=== PATIENT | female | born 1990 | race Caucasian/White ===

== ENCOUNTER → 2016-09-18 | Outpatient (CLI) | payer BC ==
[~2016-09-18] MED LIST: BCPILLS PO; PRENTAB26 PO; RANITAB33 PO
[2016-09-18 17:00] LABS: BASO % 0.2 %; BASO ABS # 0.03 K/uL (0-0.2); COMPLETE YES; EOS % 0.5 %; HEMATOCRIT 39.4 % (37-47); IG% 0.4 %; LYMPH % 23.1 %; LYMPH ABS # 3.27 K/uL (1.2-3.4); MEAN CELL VOLUME 88.7 fL (80-100); MEAN CORPUSCULAR HEMOGLOBIN 31.1 pg (25-34); MEAN PLATELET VOLUME 10.8 fL (7.4-10.4); MONO % 9.7 %; NEUT % 66.1 %; PLATELET COUNT 315 K/uL (130-400); RED BLOOD COUNT 4.44 M/uL (4.2-5.4); WHITE BLOOD COUNT 14.15 K/uL (4.8-10.8)
== END | disposition home or self-care (01) ==
LOC: C.LAB1850 15:50
PROVIDERS: ATTEND Obstetrics & Gynecology
DX: Z34.01 Encounter for supervision of normal first pregnancy, first trimester (principal)

== ENCOUNTER → 2016-09-18 | Outpatient (CLI) | payer BC | END | disposition home or self-care (01) | LOC: C.PAPS 10:07 | PROVIDERS: ATTEND Obstetrics & Gynecology | DX: Z34.01 Encounter for supervision of normal first pregnancy, first trimester (principal) ==

== ENCOUNTER → 2016-09-18 | Outpatient (CLI) | payer BC ==
[2016-09-18 20:07] LABS: URINE APPEARANCE CLEAR (CLEAR); URINE BILIRUBIN NEG (NEG); URINE COLOR YELLOW; URINE NITRITE NEG (NEG); URINE SPECIFIC GRAVITY 1.001 (1.000-1.030); UROBILINOGEN NEG (NEG)
[2016-09-18 20:08] LABS: MANUAL MICROSCOPIC REQUIRED? NO; REVIEW REQ? NO
[2016-09-22 11:57] LABS: CHLAMYDIA TRACH RNA*** NOT DETECTED (NOT DETECTED); GC (NEIS GONORRHOEAE)RNA** NOT DETECTED (NOT DETECTED)
== END | disposition home or self-care (01) ==
LOC: C.LABSPEC 19:10
PROVIDERS: ATTEND Obstetrics & Gynecology
DX: Z34.01 Encounter for supervision of normal first pregnancy, first trimester (principal)

== ENCOUNTER → 2016-11-10 | Outpatient (CLI) | payer BC ==
[2016-11-10 19:45] LABS: GTGD 50 Grams
== END | disposition home or self-care (01) ==
LOC: C.LAB1850 15:25
PROVIDERS: ATTEND Obstetrics & Gynecology
DX: Z34.02 Encounter for supervision of normal first pregnancy, second trimester (principal)

== ENCOUNTER → 2017-01-30 | Outpatient (CLI) | payer BC ==
[2017-01-30 16:49] LABS: HEMATOCRIT 35.1 % (37-47)
[2017-01-30 17:10] LABS: GTGD 50 Grams
== END | disposition home or self-care (01) ==
LOC: C.LAB1850 14:36
PROVIDERS: ATTEND Obstetrics & Gynecology
DX: Z34.02 Encounter for supervision of normal first pregnancy, second trimester (principal)

== ENCOUNTER → 2017-01-30 | Outpatient (CLI) | payer BC ==
[2017-01-30 16:59] LABS: URINE APPEARANCE CLEAR (CLEAR); URINE BILIRUBIN NEG (NEG); URINE COLOR YELLOW; URINE EPITHELIAL CELL AUTO >30 /lpf (0-5); URINE NITRITE NEG (NEG); URINE SPECIFIC GRAVITY 1.013 (1.000-1.030); UROBILINOGEN NEG (NEG)
[2017-01-30 17:06] LABS: MANUAL MICROSCOPIC REQUIRED? NO; REVIEW REQ? NO
== END | disposition home or self-care (01) ==
LOC: C.LABSPEC 16:06
PROVIDERS: ATTEND Obstetrics & Gynecology
DX: Z34.02 Encounter for supervision of normal first pregnancy, second trimester (principal)

== ENCOUNTER 2017-03-21 17:14 | Outpatient (CLI) | payer BC ==
[~2017-03-21] VITALS: Ht 160 cm; Wt 113.4 kg
[~2017-03-21 17:14] MED LIST changes: -PRENTAB26 PO; -RANITAB33 PO
[2017-03-21] MEDS ORDERED: PROMETHAZINE HCL INJ 25 MG in SODIUM CHLORIDE 0.9% 50ML 50 ML IV PRN (17:45)
[2017-03-21] MEDS ORDERED: ONDANSETRON INJ 2 MG/ML 2 ML VIAL IV PRN (17:45)
[2017-03-21] MEDS: LACTATED RINGER'S 1000ML 1,000 ML IV SCH ×2 (18:54→19:07)
[2017-03-21] MEDS ORDERED: PRENTAB26 PO (19:03)
[2017-03-21 19:04] VITALS: Ht 160 cm; Wt 113.4 kg
[2017-03-21] MEDS ORDERED: D5W AND LACTATED RINGERS 1,000 ML IV SCH ×2 (20:01→20:15)
[2017-03-21] MEDS ORDERED: NURSING VERBAL MED ORDER ONE (20:15)
[2017-03-21] MEDS ORDERED: PHENERGAN 25MG HOMEPACK PO ONE (20:30)
== END 2017-03-21 21:55 | disposition home or self-care (01) ==
LOC: C.OPB 17:14 → C.LD 17:15 → C.OPB 21:55
PROVIDERS: ATTEND Obstetrics & Gynecology
DX: O21.2 Late vomiting of pregnancy (principal); R11.10 Vomiting, unspecified; R19.7 Diarrhea, unspecified; Z3A.35 35 weeks gestation of pregnancy

== ENCOUNTER → 2017-03-27 | Outpatient (CLI) | payer BC ==
[~2017-03-27] MED LIST changes: -BCPILLS PO; +PRENTAB26 PO; +RANITAB33 PO
== END | disposition home or self-care (01) ==
LOC: C.LABSPEC 16:47
PROVIDERS: ATTEND Obstetrics & Gynecology
DX: Z34.03 Encounter for supervision of normal first pregnancy, third trimester (principal)

== ENCOUNTER 2017-04-26 04:10 | Inpatient (IN) | payer BC ==
[~2017-04-26] VITALS: Ht 160 cm; Wt 114.8 kg
[~2017-04-26 04:10] MED LIST changes: -RANITAB33 PO
[2017-04-26 04:41] VITALS: Ht 160 cm; Wt 114.8 kg
[2017-04-26] MEDS ORDERED: RANITAB33 PO (04:41)
[2017-04-26] MEDS ORDERED: LACTATED RINGER'S 1000ML 1,000 ML IV PRN (08:29)
[2017-04-26 08:56] LABS: HEMATOCRIT 34.6 % (37-47); MEAN CELL VOLUME 82.2 fL (80-100); MEAN CORPUSCULAR HEMOGLOBIN 25.2 pg (25-34); MEAN CORPUSCULAR HGB CONC 30.6 g/dl (32-36); MEAN PLATELET VOLUME 10.4 fL (7.4-10.4); PLATELET COUNT 405 K/uL (130-400); RED BLOOD COUNT 4.21 M/uL (4.2-5.4); WHITE BLOOD COUNT 19.15 K/uL (4.8-10.8)
[2017-04-26] MEDS: LACTATED RINGER'S 1000ML 1,000 ML IV SCH ×3 (08:57→14:31)
[2017-04-26] MEDS ORDERED: PENICILLIN G POTASSIUM IV 6 MU in DEXTROSE 5% 250ML 250 ML IV ONE (09:00)
[2017-04-26] MEDS ORDERED: EpHEDrine SULFATE INJ 50 MG/ML AMP ONE (13:28)
[2017-04-26] MEDS ORDERED: BUPIVACAINE 0.25% 30 ML VIAL ONE (13:28)
[2017-04-26] MEDS ORDERED: FENTANYL 2MCG/ML ROPIV 1.25MG/ML 100ML BAG EPI ONE (13:28)
[2017-04-26] MEDS ORDERED: FENTANYL CITRATE INJ 50 MCG/1 ML 2 ML VIAL ONE (13:29)
[2017-04-26] MEDS: PENICILLIN G POTASSIUM IV 3 MU in DEXTROSE 5% 100ML 100 ML IV PRN ×2 (13:33→18:59)
[2017-04-26] MEDS ORDERED: LACTATED RINGER'S 1000ML 500 ML IV PRN ×2 (13:57→15:01)
[2017-04-26] MEDS ORDERED: OXYTOCIN 30 UNITS/500ML NSS IV PRN ×2 (14:00→23:15)
[2017-04-26] MEDS ORDERED: NALOXONE HCL INJ 1 MG in SODIUM CHLORIDE 0.9% 1000ML 1,000 ML IV PRN (15:01)
[2017-04-26] MEDS ORDERED: ONDANSETRON INJ 2 MG/ML 2 ML VIAL IV PRN (15:15)
[2017-04-26] MEDS ORDERED: PROMETHAZINE HCL INJ 25 MG in SODIUM CHLORIDE 0.9% 50ML 50 ML IV PRN (15:15)
[2017-04-26] MEDS ORDERED: EpHEDrine SULFATE INJ 50 MG/ML AMP IV PRN (15:15)
[2017-04-26] MEDS ORDERED: NALBUPHINE HCL INJ 10 MG/ML AMP IV PRN (15:15)
[2017-04-26] MEDS ORDERED: FENTANYL 2MCG/ML ROPIV 1.25MG/ML 100ML BAG EPI PRN (15:15)
[2017-04-26] MEDS ORDERED: DiphenhydrAMINE HCL 50 MG/ML VIAL IV PRN (15:15)
[2017-04-26] MEDS ORDERED: NALOXONE HCL INJ 0.4 MG/1 ML VIAL/CARP IV PRN (15:15)
[2017-04-26] MEDS ORDERED: NURSING VERBAL MED ORDER ONE (17:30)
[2017-04-26] MEDS ORDERED: CALCIUM CARBONATE 500 MG CHEWABLE ONE (17:43)
[2017-04-26] MEDS ORDERED: CALCIUM CARBONATE 500 MG CHEWABLE PO PRN (18:00)
[2017-04-26] MEDS ORDERED: IBUPROFEN 600 MG TAB PO PRN (23:15)
[2017-04-26] MEDS ORDERED: BENZOCAINE 20% AER SPR 82.5 GM CAN EXT PRN (23:15)
[2017-04-26] MEDS ORDERED: LANOLIN OINT EXT PRN ×2 (23:15)
[2017-04-26] MEDS ORDERED: ACETAMINOPHEN/CODEINE 300/30MG TAB PO PRN ×2 (23:15)
[2017-04-26] MEDS ORDERED: SUPERCREAM 0.870 % 15GM JAR EXT PRN (23:15)
[2017-04-26] MEDS ORDERED: ACETAMINOPHEN 325 MG TAB PO PRN (23:15)
--- NOTE | 2017-04-27 00:15 | DELIVERY SUMMARY ---
DATE OF OPERATION: 04/26/2017 The patient is a 26-year-old 1, para 0 white female, EDC of 04/24/2017; who presented with spontaneous onset of contractions at approximately 0300 hours. She progressed to 5 cm dilated but then progressed minimally after that. She received epidural analgesia and membranes were ruptured for thin meconium stained fluid. She received Pitocin augmentation and pushed effectively over intact perineum for delivery of a viable female infant. The posterior arm was presenting, there was a mild shoulder dystocia which was relieved with hyperflexion of the hips and release of the posterior arm. Mouth and nasopharynx were suctioned on the perineum and the was placed on the mother's abdomen for further drying and stimulation. There was spontaneous crying and the was moving all 4 limbs. The placenta was expressed intact with a 3-vessel cord. A first degree vaginal and perineal laceration was repaired with 3-0 chromic in the usual fashion. Estimated blood loss was 250 cc. She did require 1% lidocaine to complete the repair of the perineal portion of the tear. Mother and infant are doing well after delivery. The was taken to the nursery for further evaluation because of grunting. I attest to the content of the Intraoperative Record and any orders documented therein. Any exception s are noted below.
--- NOTE | 2017-04-27 01:50 | Anesthesia Procedure Note ---
Anesthesia Epidural Removal Nt Date & Time Apr 27, 2017 at 01:49 Vital Signs Pain Intensity: 0.0 Notes Mental Status: alert / awake / arousable, participated in evaluation Nausea / Vomiting: adequately controlled Pain: adequately controlled Airway Patency, RR, SpO2: stable & adequate BP & HR: stable & adequate Hydration State: stable & adequate Neuraxial Anesthesia: was administered, sensory block is resolving Anesthetic Complications: no major complications apparent, pt satisfied with anesthetic care Epidural: removed without complications, with tip intact
[2017-04-27 02:25] VITALS: BP 129/73; PULSE 77; TEMP 37.1
[2017-04-27 04:40] VITALS: BP 126/73; PULSE 69; TEMP 37
--- NOTE | 2017-04-27 06:58 | Progress Note ---
Subjective Apr 27, 2017. Subjective conversation w/ patient, physical exam, chart review, lab review Ambulation: ambulating normally Voiding: no voiding problems Passing Gas: Yes Diet Tolerance: Regular Diet Lochia: Moderate Feeding Type: Breast Feeding Pain: controlled Review of Systems Respiratory: No shortness of breath Cardiac: No chest pain Abdomen: No nausea, No vomiting Female : No dysuria Objective Vital Signs Date Time Temp Pulse Resp B/P (MAP) Pulse Ox O2 Delivery O2 Flow Rate FiO2 04/27/17 04:40 37.0 69 18 126/73 (90) Room Air 04/27/17 02:25 37.1 77 18 129/73 (91) Room Air 04/27/17 02:25 Room Air Physical Exam General Appearance: WELL-APPEARING, WD/WN, NO APPARENT DISTRESS Respiratory/Chest: lungs clear, normal breath sounds, no respiratory distress Cardiovascular: regular rate, rhythm, no gallop Abdomen: normal bowel sounds, soft Fundus: Firm, Non-Tender, Relation to Umbilicus (at level of U) Extremities: no calf tenderness Laboratory Results Last 24 Hours Test 04/26/17 08:42 04/27/17 04:44 White Blood Count 19.15 K/uL Red Blood Count 4.21 M/uL Hemoglobin 10.6 g/dL Hematocrit 34.6 % Mean Corpuscular Volume 82.2 fL Mean Corpuscular Hemoglobin 25.2 pg Mean Corpuscular Hemoglobin Concent 30.6 g/dl RDW Standard Deviation 42.8 fL RDW Coefficient of Variation 14.4 % Platelet Count 405 K/uL Mean Platelet Volume 10.4 fL Assessment and Plan Post- Day#: 1 Continue Routine Care: Resident Physician Supervision Note: I interviewed and examined the patient. Discussed with Dr. Dwyer and agree with findings and plan as documented in the note. Any exceptions or clarifications are listed here: [None] Documented By: Milagros Logan - Vital Signs reviewed and WNL. - Hgb pending. (on admission was 10.6.) - Blood Type: O+, GBS + , Rubella Immune. - Pt is doing well clinically. Anxious to see baby who was transferred to [place] for respiratory distress. - Monitor and Control pain with Motrin PRN, Resume regular diet, Monitor Lochia. - Encourage breast feeding. - Per Dr. Herrera, pt clear to leave at 12 hour dee (10:30 am). At this point is medically stable. Pt counselled on discharge instructions. LORRI DWYER PGY1 FM RESIDENT Resident Tracking Resident Involvement: Resident Care Provided Care Provided: OB Delivery
--- NOTE | 2017-04-27 06:59 | Discharge Instructions ---
Discharge Instructions Date of Service Apr 27, 2017. Admission Reason for Admission: Check Labor Discharge Discharge Diagnosis / Problem: DELIVERY VAGINAL Discharge Goals Goal(s): Routine recovery after delivery Medications Continue Dispensed Medications: supercream, dermaplast, tucks, lansinoh Activity Recommendations Activity Limitations: per Instructions/Follow-up section . Instructions / Follow-Up Instructions / Follow-Up ACTIVITY RECOMMENDATIONS: * Gradual return to full activity over the next 2-3 weeks. * No lifting - nothing heavier than baby over the next 2-3 weeks. * Do not engage in vigorous exercise, sexual activity or sports until cleared by your physician. * Do not drive or operate any motorized equipment until cleared by your physician. * You may shower/bathe daily. MEDICATIONS: For discomfort or pain, you may use Acetaminophen (Tylenol), Ibuprofen (Advil), or Naproxen (Aleve) following the package directions. For constipation you may use Colace following the package directions. BREAST CARE: If you are not breast feeding: * Wear a supportive bra 24 hours a day for one to two weeks. * Avoid stimulating your breasts and nipples as much as possible during the first few weeks after delivery. * When taking a shower, have the warm water hit your back, not breasts. * When your breasts feel full, apply ice packs. Usually three to four times a day helps ease the discomfort. * Take a mild pain medication (Tylenol / Motrin) when you are uncomfortable. If breast feeding: * Use breast milk to lubricate nipples. Lansinoh cream may be used for sore nipples. You do not need to remove cream prior to breast feeding. If using a different brand of cream, check the label for directions regarding removal of cream prior to nursing. * Wear a supportive bra. * If having problems with breasts or breast feeding, call a foreign law consultant or your health care provider. EPISIOTOMY CARE: After delivery, if you have an episiotomy (stitches), the following steps will ease discomfort and aid healing. * For the first 24 hours after delivery, place ice packs next to your episiotomy to help reduce swelling. * After the first 24 hour-period, sitz baths, either portable or in the tub, are suggested. A shower with a shower arm sprayed over the episiotomy may be comforting. * Virginie care should be done after each voiding and bowel movement. Squirt warm water from a plastic bottle over the perineum (region of the body between the anus and urinary opening) and pat dry. * Use Dermoplast to ease discomfort. Shake container. [place] directly over the episiotomy. Place a Tucks on a clean sanitary pad next to your episiotomy. SPECIAL CARE INSTRUCTIONS: When you are discharged from the hospital, it is important for you to follow the instructions listed below: * During the first week at home, you should be able to care for yourself and your baby. In addition, the usual light household activities are encouraged. * Limit your activities to the way you feel. Do not try to clean the house or move furniture. Be sensible. * If you actively engage in sports and have done so up until the time of your delivery, you may resume these activities as soon as you feel able. This may take up to one month or even longer. Use good judgment. * Continue to take your vitamins for at least six weeks after the of your baby. * Your diet need not be limited unless you were on a special diet before your delivery. Breast-feeding mothers need around 2500 calories per day and at least 64-80 ounces of fluid per day (8 to 10 glasses). * You should eat foods from the four major food groups. Crash diets or fad diets are to be avoided. Eating lean meats, fresh fruits and vegetables, low-fat dairy products, high fiber foods and a regular exercise program, will help you get back to your pre- weight without putting your health at risk. * Constipation is sometimes a problem after delivery. Take a mild laxative as needed. If breast feeding, Milk of Magnesia is acceptable to use. You may use a suppository or Fleets enema if no episiotomy. * A daily shower or tub bath is suggested. Be sure to thoroughly and gently dry the perineum. * A bloody vaginal discharge will usually continue until around four weeks post . A small amount of bleeding may continue for as long as six weeks. Vaginal discharge changes from the bright red bleeding after delivery to pink then brownish and finally yellowish-pink before becoming white and disappearing. * Bleeding may increase with activity. Your first period may come in 4-8 weeks. If you are breast feeding, your period may be delayed even longer. * Tullos (sex) can begin whenever both you and your partner feel comfortable and do not have any form of genital infection. It is recommended that you wait at least six weeks for internal and external healing to occur. If you have questions, please talk to your health care practitioner. A condom should be used to prevent infection and . * Foreplay, gentle intercourse and lubrication is very important the first several times to prevent pain. A water-based lubricant such as K-Y jelly or Astroglide may be used. * If you have RH negative blood and your baby is RH positive, you will receive RHOGAM by injection prior to discharge. The nurse will give you a card to keep with you that has the date and place that you received RHOGAM after delivery. * During your care, you had a Rubella screen done to check for the presence of rubella antibodies in your blood. If your test was negative, you will receive a Rubella vaccine prior to discharge. This vaccine may cause a fever, soreness at the injection site and flu-like symptoms. If these symptoms persist, notify your health care practitioner. is not advised for one month after a Rubella vaccine. * Verbalizes understanding of car seat law as reviewed with patient nursing. * Car Seat hand-out given and reviewed with patient by nursing. * Shaken baby information reviewed with patient by nursing. Call you doctor if: * Heavy bleeding (saturating several pads an hour) or passing clots the size of your fist. * A fever >101 degrees F (38.3 degrees C) on two occasions four hours apart and /or chills. * Unusual pain in the pelvic or vaginal areas. * "Baby Blues" lasting longer than two weeks. If you have any questions or concerns, call your health care practitioner at . FOLLOW UP VISIT: * Please call the office at to schedule a 6 week examination. It is important you keep this appointment. It is important for you to make arrangements for either yearly or twice yearly check-ups thereafter. Current Hospital Diet Patient's current hospital diet: Regular OB Diet Discharge Diet Recommended Diet: Regular Diet Pending Studies Studies pending at discharge: no Medical Emergencies . Who to Call and When: Medical Emergencies: If at any time you feel your situation is an emergency, please call 911 immediately. . Non-Emergent Contact Non-Emergency issues call your: Primary Care Provider . . "Provider Documentation" section prepared by Mariola Dwyer. . VTE Core Measure Inpt VTE Proph given/why not?: Treatment not indicated
[2017-04-27 07:31] LABS: HEMATOCRIT 30.5 % (37-47)
[2017-04-27 08:00] VITALS: BP 137/80; PULSE 84; TEMP 37; O2SAT 98
[2017-04-27] MEDS ORDERED: DOCUSATE SODIUM 100 MG CAP PO SCH (08:00)
[2017-04-27] MEDS ORDERED: PRENATAL VITAMIN TAB PO SCH (08:00)
[2017-04-27 09:00] VITALS: BP_DIAS 80; PULSE 84; TEMP 37
[2017-04-27] MEDS ORDERED: BISACODYL 5 MG TABEC PO SCH (20:00)
== END 2017-04-27 09:00 | disposition home or self-care (01) | DRG 775 ==
LOC: C.OPB 04:10 → C.LD 04:11 → C.OPB 08:31 → C.LD 08:31 → C.OBG 04-27 03:47
PROVIDERS: ADMIT Obstetrics & Gynecology; ATTEND Obstetrics & Gynecology
PROC: 10E0XZZ Delivery of Products of Conception, External Approach (ICD-10-PCS; principal; 2017-04-26)
PROC: 0HQ9XZZ Repair Perineum Skin, External Approach (ICD-10-PCS; principal; 2017-04-26)
DX: O70.0 First degree perineal laceration during delivery (principal); Z37.0 Single live birth; Z3A.40 40 weeks gestation of pregnancy; Z22.330 Carrier of Group B streptococcus

== ENCOUNTER 2019-12-22 21:56 | Inpatient (IN) ==
[2019-12-22] MEDS ORDERED: OXYTOCIN 30 UNITS/500 ML BAG IV PRN (22:27)
[2019-12-22 22:57] LABS: Hematocrit (blood only) 31.6 % (37-47); Mean Corpuscular Hemoglobin 25.1 pg (25-34); Mean Corpuscular Volume 79.2 fL (80-100); Mean Platelet Volume 10.4 fL (7.4-10.4); Platelet Count 348 K/uL (130-400); RDW Coefficient of Variation 14.7 % (11.5-14.5); RDW Standard Deviation 42.1 fL (36.4-46.3); Red Blood Count 3.99 M/uL (4.2-5.4); White Blood Count 13.88 K/uL (4.8-10.8)
[2019-12-22] MEDS: LACTATED RINGER'S 1,000 ML IV PRN (23:00)
[2019-12-22 23:01] LABS: Mean Corpuscular Hgb Conc 31.6 g/dL (32-36)
[2019-12-22] MEDS ORDERED: ePHEDrine sulfate 50 MG/ML AMP ONE (23:06)
[2019-12-22] MEDS ORDERED: fentaNYL citrate 100 MCG/2 ML VIAL ONE (23:06)
[2019-12-22] MEDS ORDERED: BUPIVACAINE 0.25% 30 ML VIAL ONE (23:06)
--- NOTE | 2019-12-22 23:06 | History & Physical Report ---
Date of Service December 22, 2019 Assessment & Plan (1) Supervision of normal intrauterine in multigravida: Spontaneous labor, admit to L&D. IV fluids, EFM/toco. Labs. Patient would like epidural. Previous 8lb baby at 40+weeks . We are suspecting this baby to also be large, she would like to undergo trial of labor. I think this is reasonable, given her prior vaginal delivery of a large baby. History of Present Illness Chief Complaint: spont labor Primary Care Provider: NO PCP 29yo @ 39 11/14, presents with regular ctx and large gush of clear fluid at 9pm tonight. complicated by: Obesity (BMI 46.4) Baby in >98%ile at 32wk --> rescan @ 36wk. *BMI 35 or >At start of preg, growth US @ 32wks 36 weeks AC 90, efw 85% Anatomy us--bilateral choroid plexus cyst, bilateral dilated renal pelvis panorama low risk male, offered mfm (declined) both resolved on 24 week ultrasound. (look again at 32 week scan) Neither checked at 32 week scan Flu shot given 08/18/2019 Allergies Allergy/AdvReac Type Severity Reaction Status Date / Time No Known Allergies Verified 12/19/19 13:54 Home Medications Home Medications Medication Instructions Recorded Confirmed Type breast pump #1 ea 11/23/19 12/19/19 Rx omeprazole magnesium [Prilosec OTC] 20 mg PO DAILY PRN 12/22/19 12/22/19 History vit no.[id number] 1 tab PO DAILY 12/22/19 12/22/19 History [ Vitamin] Patient History Medical History Dehydration during Encounter for anatomic survey Miscarriage Nausea and vomiting of , antepartum Normal labor Post term over 40 weeks Varicella Surgical History S/P wisdom tooth extraction Family History Family/Other Diabetes Mother Breast cancer Father Colorectal cancer Social History Preferred Language: Danish Communication Ability: Effective Preschool Assistant Director Required: No Beliefs That Will Affect Care: None marital status: marital status details: Rito Taylor (29) [phone] Current Living Situation: Family Current Living Situation Comment: 2 cats- spouse changing litter current occupational status: employed current occupation: Teacher @ [employer] Other Information That Helps Us Care for You: No Feels Safe at Home: Yes Safety Concerns: Feels Safe At This Time Smoking Status: Never smoker Do You Dip or Chew Tobacco: No ; Second Hand Exposure: No ; Hx Alcohol Use: No Hx Substance Use: No Review of Systems All systems reviewed & are unremarkable except as noted in HPI & below Physical Exam Physical Exam: SVE 5/75/-2 per RN Constitutional: WD/WN, vitals as above Respiratory: normal respiratory effort, lungs clear to auscultation no respiratory distress Cardiovascular: Rate/Rhythm: regular rate and regular rhythm Gastrointestinal (Abdomen): Inspection/Auscultation: abdomen normal to inspection Percussion/Palpation: abdomen soft; abdomen nontender Gravid. No s/s chorio or abruption. Skin: no rashes, warm and dry Psychiatric: A+Ox3, euthymic affect Results & Data Vital Signs (Past 12 Hours) Vital Signs Temp 12/22/19 22:10 36.8 C Monitoring External Monitor FHT Cat 1 [place] Q 5 min Coding Level of Care Code None Diagnoses Supervision of normal intrauterine in multigravida Z34.80
[2019-12-22] MEDS ORDERED: fentaNYL 2MCG/ML ROPIV 1.25MG/ML 100 ML BAG EPI ONE (23:07)
--- NOTE | 2019-12-22 23:40 | Anesthesiology Consultation ---
Date of Service December 22, 2019 Assessment & Plan Chart Review Chart Review: Acceptable Risk for Labor Epidural Consults Requested none History Height/Weight Height: 5 ft 3 in Weight: 120.304 kg Allergies Allergy/AdvReac Type Severity Reaction Status Date / Time No Known Allergies Verified 12/19/19 13:54 Medications Home Medications Medication Instructions Recorded Confirmed Last Taken breast pump #1 ea 11/23/19 12/19/19 Unknown omeprazole magnesium [Prilosec OTC] 20 mg PO DAILY PRN 12/22/19 12/22/19 12/21/19 11:30 vit no.[id number] 1 tab PO DAILY 12/22/19 12/22/19 12/21/19 11:30 [ Vitamin] Active Medications Generic Name Dose Route Start Last Admin Trade Name Freq PRN Reason Stop Dose Admin Lactated Ringer's 1,000 mls @ 125 mls/hr 12/22/19 22:27 12/22/19 23:35 Lr IV 12/24/19 22:26 125 mls/hr .Q8H PRN Infusion L&D Protocol Protocol Past Medical History Medical History Dehydration during Encounter for anatomic survey Miscarriage Nausea and vomiting of , antepartum Normal labor Post term over 40 weeks Varicella Past Family History Family History Family/Other Diabetes Mother Breast cancer Father Colorectal cancer Past Surgical History Surgical History S/P wisdom tooth extraction Social History Smoking Status: Never smoker Do You Dip or Chew Tobacco: No Hx Alcohol Use: No Hx Substance Use: No substance use type: does not use Physical Exam Vital Signs Last Vital Signs Temp 36.8 C 12/22/19 22:10 Pulse 103 H 12/22/19 23:37 BP 112/54 L 12/22/19 23:37 Pulse Ox 99 12/22/19 23:35 Testing Laboratory Results 12/22/19 22:46
[2019-12-22] MEDS ORDERED: NALOXONE HCL 1 MG in SODIUM CHLORIDE 0.9% 1000ML 1,000 ML IV PRN (23:41)
[2019-12-22] MEDS ORDERED: NALBUPHINE HCL INJ 10 MG/ML AMP IV PRN (23:41)
[2019-12-22] MEDS ORDERED: fentaNYL 2MCG/ML ROPIV 1.25MG/ML 100 ML BAG EPI PRN (23:41)
[2019-12-22] MEDS ORDERED: DiphenhydrAMINE HCL 50 MG/ML VIAL IV PRN (23:41)
[2019-12-22] MEDS ORDERED: ePHEDrine sulfate 50 MG/ML AMP IV PRN (23:41)
[2019-12-22] MEDS ORDERED: NALOXONE HCL 0.4 MG/1 ML VIAL/CARP IV PRN (23:41)
[2019-12-23] MEDS: LACTATED RINGER'S 1,000 ML IV PRN (00:08)
[2019-12-23] MEDS ORDERED: OXYTOCIN 30 UNITS/500 ML BAG IV PRN ×2 (01:51→04:33)
--- NOTE | 2019-12-23 04:03 | Delivery Summary ---
Vaginal Delivery Summary Date of Service December 23, 2019 Vaginal Delivery Summary Vaginal Delivery Summary: Pre-delivery diagnoses: 29yo @ 38 12/14, spontaneous labor Post-delivery diagnoses: same Procedure: spontaneous vaginal delivery Surgeon: Cathy Dominguez DO Complications: none Findings: Viable male . Apgars: 8/9. Weight pending, please see nursery records Estimated blood loss: 300ml Description of delivery: The patient progressed to complete with epidural anesthesia. She then began to push. She spontaneously vaginally delivered a viable from the cephalic presentation. The head delivered in ROP position. The anterior shoulder delivered, followed by the posterior shoulder, followed by the body. The baby was placed on mother's abdomen and a spontaneous cry was heard. The cord was doubly clamped and cut. A segment was retained for cord gases. Cord blood was obtained. The placenta was delivered spontaneously intact with a 3-vessel cord. The uterus and vagina were swept of clots and debris. IV pitocin was given. The uterus became firm. The cervix, vagina, and perineum were inspected and a superficial 1st degree perineal lacerations was noted. Since it was hemostatic, it did not require repair. Excellent hemostas is was observed. The mother and baby are recovering in stable and good condition in the room. Sponge and instrument counts were correct x 2. DO ESTELA Aponte
[2019-12-23] MEDS ORDERED: OXYCODONE/ACETAMINOPHEN 5mg/325mg TAB PO PRN (04:33)
[2019-12-23] MEDS ORDERED: HYDROCORTISONE ACETATE 25 MG SUPP PR PRN (04:33)
[2019-12-23] MEDS ORDERED: BENZOCAINE 20% AER SPR 82.5 GM CAN EXT PRN (04:33)
[2019-12-23] MEDS ORDERED: SUPERCREAM 0.870% 15 GM JAR EXT PRN (04:33)
[2019-12-23] MEDS ORDERED: bisacodyL 10 MG SUPP PR PRN (04:33)
[2019-12-23] MEDS ORDERED: DIPHTHERIA/TETANUS/PERTUSSIS 0.5 ML SYR/VIAL IM ONE (04:33)
[2019-12-23] MEDS ORDERED: PANTOprazole 40 MG TAB PO PRN (04:40)
[2019-12-23 05:46] LABS: Base Excess Cord Arterial Bld -6.8 mEq/L (-9-1.8); CO2 Cord Arterial Blood 74 mmHg (39.1-73.5); Cord Venous Blood HCO3 24 mmol/L (18.4-26.8); Cord Venous Blood PCO2 65 mmHg (30.4-57.2); Cord Venous Blood PO2 16 mmHg (14.1-43.3); Cord Venous Blood pH 7.18 (7.20-7.44); HCO3 Cord Arterial Blood 24 mmol/L (19.7-28.5); O2 Saturation Cord Venous Bld < 60.0 % (<68); Oxygen Sat Cord Arterial Blood < 60.0 % (<60); PO2 Cord Arterial Blood 13 mmHg (4.1-31.7); pH Cord Arterial Blood 7.13 (7.1-7.38)
[2019-12-23] MEDS: PRENATAL VITAMIN 1 TAB PO SCH (07:30)
[2019-12-23] MEDS: DOCUSATE SODIUM 100 MG CAP PO SCH ×2 (07:30→21:05)
--- NOTE | 2019-12-23 07:54 | Anesthesia Procedure Note ---
Date of Service December 23, 2019 Anesthesia Post Epidural Note Vital Signs Vital Signs: Temp Pulse Resp BP Pulse Ox 37.0 C 98 H 18 114/60 96 12/23/19 05:49 12/23/19 05:49 12/23/19 05:49 12/23/19 05:49 12/23/19 03:45 Notes Mental Status: alert / awake / arousable and participated in evaluation Patient Amnestic to Procedure: Yes Nausea / Vomiting: adequately controlled Pain: adequately controlled Airway Patency, RR, SpO2: stable & adequate BP & HR: stable & adequate Hydration State: stable & adequate Neuraxial Anesthesia: was administered and sensory block resolved Anesthetic Complications: no major complications apparent and Pt Satisfied with anesthetic care Epidural: Removed without complications and With tip intact
[2019-12-23] MEDS ORDERED: PRENATAL VITAMIN 1 TAB PO SCH (09:00)
[2019-12-23] MEDS: ACETAMINOPHEN 325 MG TAB PO PRN (19:17)
[2019-12-24] MEDS: IBUPROFEN 600 MG TAB PO PRN ×2 (03:34→17:49)
[2019-12-24 06:37] LABS: Hematocrit (blood only) 29.5 % (37-47)
--- NOTE | 2019-12-24 07:45 | Obstetrical Progress Note ---
Date of Service December 24, 2019 Assessment & Plan (1) Supervision of normal intrauterine in multigravida: - doing well -desires d/c -instructions given -f/u in 6 weeks Subjective Ambulation: ambulating normally Voiding: no voiding problems Physical Exam Constitutional WD/WN, vitals as above Gastrointestinal (Abdomen) Fundus firm below umbilicus Musculoskeletal No deep calf tenderness Results & Data Vital Signs (Past 12 Hours) Vital Signs Temp Pulse Resp BP Pulse Ox 12/24/19 04:15 98.4 F 74 18 118/74 96 12/23/19 23:15 98.1 F 79 18 128/85 98
[2019-12-24] MEDS: DOCUSATE SODIUM 100 MG CAP PO SCH (07:57)
[2019-12-24] MEDS: PRENATAL VITAMIN 1 TAB PO SCH (07:57)
[2019-12-24] MEDS: ACETAMINOPHEN 325 MG TAB PO PRN (14:42)
[2019-12-24] MEDS ORDERED: bisacodyL 5 MG TABEC PO SCH (20:00)
== END 2019-12-24 18:00 | disposition home or self-care (01) | DRG 807 ==
LOC: OPB 21:56 → 4S2 21:56 → 4S1 22:38 → 4S2 12-23 06:34

== ENCOUNTER 2021-03-25 07:34 | Inpatient (IN) ==
[2021-03-25] MEDS ORDERED: OXYTOCIN 30 UNITS/500 ML BAG IV PRN ×3 (08:02→19:51)
[2021-03-25 08:35] LABS: Hematocrit (blood only) 33.7 % (37-47); Hemoglobin 10.3 g/dL (12.0-16.0); Mean Corpuscular Hemoglobin 24.8 pg (25-34); Mean Corpuscular Hgb Conc 30.6 g/dL (32-36); Mean Corpuscular Volume 81.2 fL (80-100); Mean Platelet Volume 10.6 fL (7.4-10.4); Platelet Count 287 K/uL (130-400); RDW Coefficient of Variation 15.8 % (11.5-14.5); RDW Standard Deviation 46.1 fL (36.4-46.3); Red Blood Count 4.15 M/uL (4.2-5.4); White Blood Count 10.26 K/uL (4.8-10.8)
--- NOTE | 2021-03-25 10:02 | History & Physical Report ---
Date of Service March 25, 2021 Assessment & Plan (1) Supervision of normal intrauterine in multigravida: Plan: Admit to L&D, EFM/toco, pitocin. Plans for epidural at some point. Admission and Anticipated Discharge Date Admission Date: March 25, 2021 History of Present Illness Chief Complaint: IOL Primary Care Provider: NO PCP 30yo @ 40 09/16, here for IOL. H/o large babies (8, 9 lbs) and requesting IOL due to concern about size. Pt's course complicated by obesity. Allergies Allergy/AdvReac Type Severity Reaction Status Date / Time No Known Allergies Verified 03/18/21 13:41 Home Medications Medication Instructions Recorded Confirmed Type vits no.124-ferrous fum 1 tab PO DAILY 12/22/19 03/25/21 History 27 mg iron-folic acid 800 mcg tablet ( Vitamin) breast pump #1 ea 01/21/21 03/18/21 Rx sertraline 25 mg tablet (Zoloft) 25 mg PO DAILY #30 tab 02/20/21 03/25/21 Rx ranitidine HCl 150 mg capsule 150 mg PO DAILY 03/16/21 03/25/21 History Patient History Medical History Encounter for anatomic survey Miscarriage Varicella Surgical History S/P wisdom tooth extraction Family History Family/Other Diabetes Mother Breast cancer Father Colorectal cancer Denies family history of Ovarian cancer Social History (Updated 08/13/20 @ 09:56 by Valery Orozco) Smoking Status: Never smoker Second Hand Exposure: No; Hx Alcohol Use: No Hx Substance Use: No Preferred Language: Setswana Communication Ability: Effective Telecommunications Line Installer Required: No Beliefs That Will Affect Care: None marital status: marital status details: Rito Taylor (31) [phone] Current Living Situation: Spouse Current Living Situation Comment: lives with spouse, 2 children, 2 cats- spouse changing litter current occupational status: 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 No s/s chorio or abruption. Skin: no rashes, warm and dry Psychiatric: A+Ox3, euthymic affect Results & Data ([facility]) Vital Signs (Past 12 Hours) Vital Signs Temp Pulse Resp BP 03/25/21 08:01 36.8 C 101 H 18 128/74 03/25/21 07:57 101 H 128/74 Coding Level of Care Code None Diagnoses Supervision of normal intrauterine in multigravida Z34.80
[2021-03-25] MEDS: LACTATED RINGER'S 1,000 ML IV PRN ×2 (12:00→15:05)
[2021-03-25] MEDS ORDERED: BUPIVACAINE 0.25% 30 ML VIAL ONE (14:15)
[2021-03-25] MEDS ORDERED: ePHEDrine sulfate 50 MG/ML AMP ONE (14:15)
[2021-03-25] MEDS ORDERED: SODIUM CHLORIDE 0.9% INJ 10 ML VIAL ONE (14:15)
[2021-03-25] MEDS ORDERED: fentaNYL citrate 100 MCG/2 ML VIAL ONE (14:16)
[2021-03-25] MEDS ORDERED: fentaNYL 2MCG/ML ROPIVACAINE 1.25MG/ML 100 ML BAG EPI ONE (14:16)
--- NOTE | 2021-03-25 14:19 | Obstetrical Progress Note ---
Date of Service March 25, 2021 Assessment & Plan Admission and Anticipated Discharge Date Admission Date: March 25, 2021 Subjective Comfortable. FHT Cat 1 [place] Q 2-3 SVE 4-5/80/-1 AROM clear fluid. IUPC, FSE placed per pt request because of pain with external monitoring bands. Results & Data ([facility]) Vital Signs (Past 12 Hours) Vital Signs Temp Pulse Resp BP 03/25/21 13:36 90 131/72 03/25/21 12:36 36.9 C 79 18 131/69 03/25/21 08:01 36.8 C 101 H 18 128/74 03/25/21 07:57 101 H 128/74 PG Care Time/CCT Total # of Minutes Spent Total Time Spent with Patient: Total time spent is greater than 50% in coordination of care (as documented) at patient's floor/unit and/or counseling patient: Coding Level of Care Code None
--- NOTE | 2021-03-25 15:09 | Anesthesiology Consultation ---
Date of Service March 25, 2021 Assessment & Plan Chart Review Chart Review: Acceptable Risk for Labor Epidural Consults Requested none History Height/Weight Height: 5 ft 3 in Weight: 123.377 kg Allergies Allergy/AdvReac Type Severity Reaction Status Date / Time No Known Allergies Verified 03/18/21 13:41 Medications Home Medications Medication Instructions Recorded Confirmed Last Taken vits [id number]-ferrous fum 1 tab PO DAILY 12/22/19 03/25/21 03/24/21 23:15 27 mg iron-folic acid 800 mcg tablet ( Vitamin) breast pump #1 ea 01/21/21 03/18/21 Unknown sertraline 25 mg tablet (Zoloft) 25 mg PO DAILY #30 tab 02/20/21 03/25/21 03/24/21 23:15 ranitidine HCl 150 mg capsule 150 mg PO DAILY 03/16/21 03/25/21 03/24/21 23:15 Active Medications Generic Name Dose Route Start Last Admin Trade Name Freq PRN Reason Stop Dose Admin Lactated Ringer's 1,000 mls @ 125 mls/hr 03/25/21 08:02 03/25/21 15:05 Lr IV 03/27/21 08:01 999 mls/hr .Q8H PRN Administration L&D Protocol Protocol Oxytocin 30 units in 500 mls @ 7 mls/hr 03/25/21 08:12 03/25/21 13:50 Pitocin IV 03/27/21 08:11 0.42 units/hr .Q24H PRN 7 mls/hr Labor Induction/Augmentation Titration Protocol 0.42 UNITS/HR Past Medical History Medical History Encounter for anatomic survey Miscarriage Varicella Past Family History Family History Family/Other Diabetes Mother Breast cancer Father Colorectal cancer Denies family history of Ovarian cancer Past Surgical History Surgical History S/P wisdom tooth extraction Social History Smoking Status: Never smoker Hx Alcohol Use: No Hx Substance Use: No substance use type: does not use Physical Exam Vital Signs Last Vital Signs Temp 36.9 C 03/25/21 12:36 Pulse 113 H 03/25/21 15:07 Resp 18 03/25/21 12:36 BP 116/57 L 03/25/21 15:07 Pulse Ox 99 03/25/21 15:05 Testing Laboratory Results 03/25/21 08:15
--- NOTE | 2021-03-25 15:12 | Anesthesiology Consultation ---
Date of Service March 25, 2021 History Height/Weight Height: 5 ft 3 in Weight: 123.377 kg Allergies Allergy/AdvReac Type Severity Reaction Status Date / Time No Known Allergies Verified 03/18/21 13:41 Medications Home Medications Medication Instructions Recorded Confirmed Last Taken vits no.124-ferrous fum 1 tab PO DAILY 12/22/19 03/25/21 03/24/21 23:15 27 mg iron-folic acid 800 mcg tablet ( Vitamin) breast pump #1 ea 01/21/21 03/18/21 Unknown sertraline 25 mg tablet (Zoloft) 25 mg PO DAILY #30 tab 02/20/21 03/25/21 03/24/21 23:15 ranitidine HCl 150 mg capsule 150 mg PO DAILY 03/16/21 03/25/21 03/24/21 23:15 Active Medications Generic Name Dose Route Start Last Admin Trade Name Freq PRN Reason Stop Dose Admin Lactated Ringer's 1,000 mls @ 125 mls/hr 03/25/21 08:02 03/25/21 15:05 Lr IV 03/27/21 08:01 999 mls/hr .Q8H PRN Administration L&D Protocol Protocol Oxytocin 30 units in 500 mls @ 7 mls/hr 03/25/21 08:12 03/25/21 13:50 Pitocin IV 03/27/21 08:11 0.42 units/hr .Q24H PRN 7 mls/hr Labor Induction/Augmentation Titration Protocol 0.42 UNITS/HR Past Medical History Medical History Encounter for anatomic survey Miscarriage Varicella Exercise / Class Metabolic Activity II 4-5 Yardwork/Stairs/Walk up hill Past Family History Family History Family/Other Diabetes Mother Breast cancer Father Colorectal cancer Denies family history of Ovarian cancer Past Surgical History Surgical History S/P wisdom tooth extraction Past Anesthesia History No Hx of Anesthesia Complications and No Family Hx of Anesthesia Complications History of PONV No Hx of PONV and No Hx of Motion Sickness Social History Smoking Status: Never smoker Hx Alcohol Use: No Hx Substance Use: No substance use type: does not use Physical Exam Vital Signs Last Vital Signs Temp 36.9 C 03/25/21 12:36 Pulse 104 H 03/25/21 15:09 Resp 18 03/25/21 12:36 BP 116/54 L 03/25/21 15:09 Pulse Ox 99 03/25/21 15:05 Testing Laboratory Results 03/25/21 08:15
[2021-03-25] MEDS ORDERED: ONDANSETRON INJ 2 MG/ML 2 ML VIAL IV PRN (15:19)
[2021-03-25] MEDS ORDERED: ePHEDrine sulfate 50 MG/ML AMP IV PRN (15:19)
[2021-03-25] MEDS ORDERED: NALBUPHINE HCL INJ 10 MG/ML AMP IV PRN (15:19)
[2021-03-25] MEDS ORDERED: fentaNYL 2MCG/ML ROPIVACAINE 1.25MG/ML 100 ML BAG EPI PRN (15:19)
[2021-03-25] MEDS ORDERED: NALOXONE HCL 1 MG in SODIUM CHLORIDE 0.9% 1000ML 1,000 ML IV PRN (15:19)
[2021-03-25] MEDS ORDERED: diphenhydrAMINE 50 MG/ML VIAL IV PRN (15:19)
[2021-03-25] MEDS ORDERED: NALOXONE HCL 0.4 MG/1 ML VIAL/CARP IV PRN (15:19)
--- NOTE | 2021-03-25 19:08 | Delivery Summary ---
Vaginal Delivery Summary Date of Service March 25, 2021 Vaginal Delivery Summary and 1st Degree LAC Vaginal Delivery Summary: Pre-delivery diagnoses: 30yo @ 39 2/, eIOL Post-delivery diagnoses: same Procedure: spontaneous vaginal delivery Surgeon: Cathy Dominguez DO Complications: none Findings: Viable male . Apgars: 8/8 . Weight pending, please see nursery records. Estimated blood loss: 300ml Description of delivery: The patient progressed to complete with epidural anesthesia. She then began to push. She spontaneously vaginally delivered a viable from the cephalic presentation. The head delivered in OP position. The anterior shoulder delivered, followed by the posterior shoulder, followed by the body. The baby was placed on mother's abdomen and a spontaneous cry was heard. Delayed cord clamping was employed, and the cord was doubly clamped and cut. Cord blood was obtained. The placenta was delivered spontaneously intact with a 3-vessel cord. The uterus and vagina were swept of clots and debris. IV pitocin was given. The uterus became firm. The cervix, vagina, and perineum were inspected and a first degree perineal laceration was noted, because this was hemostatic, patient declined repair. Excellent hem ostasis was observed. The mother and baby are recovering in stable and good condition in the room. Sponge and instrument counts were correct x 2. Cathy Dominguez DO [facility] [place]aginal Delivery Charge Vaginal Delivery Codes: 69908 global code for the antepartum, delivery, and post- Delivery Type Details: and 1st Degree LAC
[2021-03-25] MEDS ORDERED: IBUPROFEN 600 MG TAB PO PRN (19:51)
[2021-03-25] MEDS ORDERED: DIPHTHERIA/TETANUS/PERTUSSIS 0.5 ML SYR/VIAL IM ONE (19:51)
[2021-03-25] MEDS ORDERED: BENZOCAINE 20% AER SPR 82.5 GM CAN EXT PRN (19:51)
[2021-03-25] MEDS ORDERED: ACETAMINOPHEN 325 MG TAB PO PRN (19:51)
[2021-03-25] MEDS ORDERED: bisacodyL 10 MG SUPP PR PRN (19:51)
[2021-03-25] MEDS ORDERED: oxyCODONE/ACETAMINOPHEN 5mg/325mg TAB PO PRN (19:51)
[2021-03-25] MEDS ORDERED: HYDROCORTISONE ACETATE 25 MG SUPP PR PRN (19:51)
[2021-03-25] MEDS ORDERED: SUPERCREAM 0.870% 15 GM JAR EXT PRN (19:51)
--- NOTE | 2021-03-25 20:28 | Anesthesia Procedure Note ---
Date of Service March 25, 2021 Anesthesia Post Epidural Note Vital Signs Vital Signs: Temp Pulse Resp BP Pulse Ox 37 C 95 H 20 127/58 L 96 03/25/21 18:55 03/25/21 20:25 03/25/21 18:55 03/25/21 20:25 03/25/21 19:10 Notes Mental Status: alert / awake / arousable Nausea / Vomiting: adequately controlled Pain: adequately controlled Airway Patency, RR, SpO2: stable & adequate BP & HR: stable & adequate Hydration State: stable & adequate Neuraxial Anesthesia: was administered and sensory block is resolving Anesthetic Complications: no major complications apparent and Pt Satisfied with anesthetic care Epidural: Removed without complications and With tip intact
[2021-03-25] MEDS: DOCUSATE SODIUM 100 MG CAP PO SCH (22:04)
--- NOTE | 2021-03-26 06:47 | Obstetrical Progress Note ---
Date of Service <Nick Estes DO - Last Filed: 03/26/21 07:56> March 26, 2021 Assessment & Plan <Nick Estes DO Last Filed: 03/26/21 07:56> (1) Encounter for care and examination after delivery: PPD day 0 - Patient doing well, no pain at rest. - O+, GBS-, RI. - Vitals WNL. - Encourage . - Patient would like to go home later in the day. Discussed discharge instructions with patient. <Cathy Dominguez, - Last Filed: 03/26/21 08:27> (1) Encounter for care and examination after delivery: Subjective <Nick Estes DO Last Filed: 03/26/21 07:56> Ambulation: ambulating normally Voiding: no voiding problems Passing Gas:: Yes Diet Tolerance:: regular diet Lochia:: Small Feeding Type:: breast feeding Current Pain Level(1-10): 0 Review of Systems Denies fever, chills, sweats Denies shortness of breath, difficulty breathing, chest pain, palpitations, chest pressure. Denies breast pain. Denies dysuria. Denies headache or changes in vision Physical Exam <DO Bethany Yoo Last Filed: 03/26/21 07:56> General: Alert, oriented. No acute distress. Cardiac: Regular rate and rhythm, no murmurs/rubs/gallops. Respiratory: Clear to auscultation bilaterally a/p, no wheezes/rales/rhonchi. No increased work of breathing. Symmetrical chest rise. No respiratory distress. Abdomen: Soft, nontender, nondistended. Bowel sounds present. Uterus: Uterine fundus firm, palpable 3 cm below umbilicus. Lower Extremities: No lower extremity edema or swelling. No deep calf pain. Jennifer's negative bilaterally Results & Data ([facility]) <Nick Estes DO Last Filed: 03/26/21 07:56> Vital Signs (Past 12 Hours) Vital Signs Temp Pulse Pulse Resp BP BP Pulse Ox 03/26/21 03:38 36.9 C 82 16 123/73 97 03/25/21 23:19 37.1 C 83 16 129/76 96 03/25/21 21:15 37.2 C 92 H 18 135/86 03/25/21 20:55 37.2 C 20 03/25/21 20:40 102 H 126/60 03/25/21 20:25 95 H 127/58 L 03/25/21 20:10 93 H 119/71 03/25/21 19:55 97 H 128/73 03/25/21 19:40 102 H 123/65 03/25/21 19:25 109 H 109/57 L 03/25/21 19:10 106 H 98/58 L 96 03/25/21 19:05 104 H 96 03/25/21 19:01 113 H 92 03/25/21 19:00 116 H 97 03/25/21 18:56 112 H 93 03/25/21 18:55 37 C 105 H 20 113/56 L 95 03/25/21 18:50 105 H 95 03/25/21 18:45 112 H 97 <Cathy Dominguez DO - Last Filed: 03/26/21 08:27> Co-Signing Physician Notes Resident Physician Supervision Note: I was present with Dr. Estes during the history and exam. I discussed the case with the resident and agree with the findings and plan as documented in the note. Any exceptions or clarifications are listed here: PPD1 doing well. Would like to go home. Instructions reviewed. Documented By: Cathy Dominguez DO Resident Activity Tracking <Nick Estes DO - Last Filed: 03/26/21 07:56> Resident Involvement: Resident Care Provided Care Provided: OB Delivery
[2021-03-26 07:43] LABS: Hematocrit (blood only) 31.5 % (37-47); Hemoglobin 9.7 g/dL (12.0-16.0)
[2021-03-26] MEDS ORDERED: PRENATAL VITAMIN 1 TAB PO SCH (08:00)
[2021-03-26] MEDS: DOCUSATE SODIUM 100 MG CAP PO SCH (08:41)
[2021-03-26] MEDS ORDERED: SERTRALINE HCL 50 MG TABLET PO SCH (09:00)
[2021-03-26] MEDS ORDERED: bisacodyL 5 MG TABEC PO SCH (20:00)
== END 2021-03-26 20:00 | disposition home or self-care (01) | DRG 807 ==
LOC: 4S1 07:34 → 4S2 21:27
DX: Z83.3 Family history of diabetes mellitus; Z53.8 Procedure and treatment not carried out for other reasons; Z3A.39 39 weeks gestation of pregnancy; O70.0 First degree perineal laceration during delivery; Z37.0 Single live birth